=== PATIENT | female | born 1990 | race Two or more races ===

== ENCOUNTER → 2019-06-16 | Outpatient (CLI) | payer OTHER | END | disposition home or self-care (01) | LOC: LAB SHORT 14:19 → LAB UCHC 14:19 | DX: B00.1 Herpesviral vesicular dermatitis (principal) | CPT/HCPCS: 87529 ==

== ENCOUNTER → 2019-12-11 | Outpatient (CLI) | payer OTHER ==
[2019-12-14 01:04] LABS: CHLAMYDIA TRACHOMATIS, NAA Negative (Negative); NEISSERIA GONORRHOEAE, NAA Negative (Negative)
== END ==
LOC: LAB SHORT 15:49 → LAB 15:49
PROVIDERS: Registered Nurse Community Health
DX: Z34.91 Encounter for supervision of normal pregnancy, unspecified, first trimester (principal)
CPT/HCPCS: 87491; 87591

== ENCOUNTER → 2020-04-06 | Outpatient (CLI) | payer OTHER ==
[~2020-04-06] MED LIST: PRENATAL TABLE1 EAC2 PO
[2020-04-06 15:53] LABS: Hematocrit 35.5 % (33.0-51.0); Hemoglobin 11.9 g/dL (11.5-16.0)
== END ==
LOC: LAB 15:02 → LAB SHORT 15:02
PROVIDERS: Registered Nurse Community Health
DX: Z34.91 Encounter for supervision of normal pregnancy, unspecified, first trimester (principal)
CPT/HCPCS: 82950; 85014; 85018

== ENCOUNTER 2020-06-29 09:39 | Inpatient (IN) | payer OTHER ==
[~2020-06-29] VITALS: Ht 167.6 cm; Wt 83.6 kg
[2020-06-29] MEDS ORDERED: PRENATAL TABLE1 EAC2 PO (10:34)
[2020-06-29 12:01] LABS: Influenza A, PCR NEGATIVE (NEGATIVE); Influenza B, PCR NEGATIVE (NEGATIVE); Resp Syncytial Virus, PCR NEGATIVE (NEGATIVE); SARS-Cov-2 (COVID-19) PCR, MMC NEGATIVE (NEGATIVE)
--- NOTE | 2020-06-29 12:59 | NUR ---
PT DOES NOT WANT IV PLACED. ARLET VALADEZ, AWARE AND RESPECTING PATIENT'S WISHES. PLAN TO HAVE IM PITOCIN, IM METHERGINE, AND CYTOTEC IN ROOM AT DELIVERY.
[2020-06-30 05:38] LABS: BASOPHILS ABSOLUTE AUTO 0.04 K/mm3 (0.00-0.23); BASOPHILS PERCENT AUTO 0 % (0-2); EOSINOPHILS ABSOLUTE AUTO 0.01 K/mm3 (0.00-0.68); EOSINOPHILS PERCENT AUTO 0 % (0-6); Hematocrit 35.7 % (33.0-51.0); Hemoglobin 12.5 g/dL (11.5-16.0); IMMATURE GRAN ABSOLUTE AUTO 0.12 K/mm3 (0.00-0.10); IMMATURE GRAN PERCENT AUTO 1 % (0-1); LYMPHOCYTES ABSOLUTE AUTO 2.95 K/mm3 (0.84-5.20); LYMPHOCYTES PERCENT AUTO 16 % (21-46); MONOCYTES ABSOLUTE AUTO 1.22 K/mm3 (0.16-1.47); MONOCYTES PERCENT AUTO 7 % (4-13); Mean Corpuscular HGB 31.5 pg (26.0-34.0); Mean Corpuscular Volume 90 fL (80-100); Mean Platelet Volume 11.8 fL (9.1-12.4); NEUTROPHILS ABSOLUTE AUTO 14.49 K/mm3 (1.96-9.15); NEUTROPHILS PERCENT AUTO 77 % (41-73); Platelet Count 212 K/mm3 (150-400); RDW Coefficient Variation 13.2 % (11.7-14.2); RDW Standard Deviation 42.8 fL (35.1-46.3); Red Blood Cell Count 3.97 M/mm3 (3.80-5.20); White Blood Cell Count 18.83 K/mm3 (4.00-11.30)
--- NOTE | 2020-06-30 10:48 | NUR ---
RN/LC ROUNDED TO HELP W/ (BRF). PT STATES BRF HAS BEEN GOING WELL. INSTRUCT/REVIEWED GUIDE TO BOOKLET, CORRECT POSITIONING, LATCHING, NIPPLE SHAPE AFTER FEEDS, AND FREQUENCY OF FEEDINGS. PT VERBALIZED UNDERSTANDING, DENIES QUESTIONS OR CONCERNS. FURTHER LC OFFERED.
--- NOTE | 2020-06-30 19:18 | NUR ---
DISCHARGE INSTRUCTIONS, WRITTEN AND VERBAL, GIVEN TO PT AND . ANSWERED ALL QUESTIONS AND CONCERNS. FOLLOW UP APPOINTMENT SCHEDULED. PT DENIED NEEDING ANY PRESCRIPTIONS. ALL PERSONAL BELONGINGS RETURNED. PT IS DISCHARGED HOME, DRIVEN BY .
== END 2020-06-30 19:19 | disposition home or self-care (01) | DRG 807 ==
LOC: OBS 09:39 → BC 09:43 → OBS 10:19 → BC 10:20
PROVIDERS: ADMIT Registered Nurse Community Health
PROC: 10E0XZZ Delivery of Products of Conception, External Approach (ICD-10-PCS; principal; 2020-06-29)
PROC: 0HQ9XZZ Repair Perineum Skin, External Approach (ICD-10-PCS; 2020-06-29)
DX: O70.0 First degree perineal laceration during delivery (principal); Z37.0 Single live birth; Z3A.40 40 weeks gestation of pregnancy; Z20.822 Contact with and (suspected) exposure to COVID-19
CPT/HCPCS: 0241U; 36415; 85025; A9270; J2590

== ENCOUNTER → 2020-12-21 | Outpatient (CLI) | payer OTHER ==
[2020-12-24 10:11] LABS: HPV 16 Negative (Negative); HPV 18 Negative (Negative); HPV OTHER HR TYPES Negative (Negative)
== END ==
LOC: LAB SHORT 14:30 → LAB 14:30
PROVIDERS: Student in an Organized Health Care Education/Training Program
DX: Z01.419 Encounter for gynecological examination (general) (routine) without abnormal findings (principal)
CPT/HCPCS: 87624; G0123

== ENCOUNTER → 2022-04-28 | Outpatient (CLI) | payer OTHER | END | disposition home or self-care (01) | LOC: LAB SHORT 13:03 | DX: N81.4 Uterovaginal prolapse, unspecified (principal) | CPT/HCPCS: 87086 ==

== ENCOUNTER → 2023-07-06 | Outpatient (CLI) | payer BC, OTHER ==
[2023-07-12 22:11] LABS: HPV HIGH RISK BY TMA Not Detected; HPV SOURCE Cervical
== END ==
LOC: LAB SHORT 11:53 → LAB 11:53
PROVIDERS: Family Medicine
DX: Z12.4 Encounter for screening for malignant neoplasm of cervix (principal)
CPT/HCPCS: 87624; G0123

== ENCOUNTER → 2024-06-23 | Outpatient (CLI) | payer BC, OTHER | END | disposition home or self-care (01) | LOC: LAB 12:00 → LAB SHORT 12:00 | DX: Z34.83 Encounter for supervision of other normal pregnancy, third trimester (principal); Z3A.36 36 weeks gestation of pregnancy | CPT/HCPCS: 87081; 87147 ==

== ENCOUNTER 2024-07-14 14:15 | Inpatient (IN) | payer BC, OTHER ==
[2024-07-14] VITALS (11 sets, daily range): BP systolic 121–141; BP diastolic 58–88
[2024-07-14] MEDS ORDERED: OXYTOCIN/RINGER'S LACTATE 500 ML IV PRN (14:50)
[2024-07-14] MEDS ORDERED: Tranexamic Acid 100 ML IV SCH (14:50)
[2024-07-14] MEDS ORDERED: Calcium Carbonate 500 MG Tab Chew PO SCH (14:50)
[2024-07-14] MEDS ORDERED: Lactated Ringer's 1,000 ML IV PRN (14:50)
[2024-07-14] MEDS ORDERED: Misoprostol 200 MCG Tab BC PRN (14:50)
[2024-07-14] MEDS ORDERED: Ondansetron HCl 2 MG / ML 2ML Vial IV PRN (14:50)
[2024-07-14] MEDS ORDERED: Methylergonovine Maleate 0.2MG / ML 1ML Amp IM PRN ×2 (14:50→16:20)
[2024-07-14] MEDS ORDERED: Carboprost Tromethamine 250 MCG/ML 1ML Amp IM PRN ×2 (14:50→16:25)
[2024-07-14] MEDS ORDERED: Misoprostol 200 MCG Tab PR PRN (14:50)
[2024-07-14] MEDS ORDERED: Acetaminophen 500 MG Tab PO PRN (14:50)
[2024-07-14] MEDS ORDERED: Oxytocin 10 Unit / ML Vial IM PRN (14:50)
[2024-07-14 15:20] LABS: BASOPHILS ABSOLUTE AUTO 0.04 K/mm3 (0.00-0.23); BASOPHILS PERCENT AUTO 0 % (0-2); EOSINOPHILS ABSOLUTE AUTO 0.03 K/mm3 (0.00-0.68); EOSINOPHILS PERCENT AUTO 0 % (0-6); Hematocrit 41.9 % (33.0-51.0); Hemoglobin 14.9 g/dL (11.5-16.0); IMMATURE GRAN PERCENT AUTO 1 % (0-1); LYMPHOCYTES ABSOLUTE AUTO 2.64 K/mm3 (0.84-5.20); LYMPHOCYTES PERCENT AUTO 20 % (21-46); MONOCYTES ABSOLUTE AUTO 0.75 K/mm3 (0.16-1.47); MONOCYTES PERCENT AUTO 6 % (4-13); Mean Corpuscular HGB 30.9 pg (26.0-34.0); Mean Corpuscular HGB Conc 35.6 g/dL (31.5-36.5); Mean Corpuscular Volume 87 fL (80-100); Mean Platelet Volume 11.9 fL (9.1-12.4); NEUTROPHILS ABSOLUTE AUTO 9.59 K/mm3 (1.96-9.15); NEUTROPHILS PERCENT AUTO 73 % (41-73); Platelet Count 231 K/mm3 (150-400); RDW Coefficient Variation 14.2 % (11.7-14.2); RDW Standard Deviation 44.5 fL (35.1-46.3); Red Blood Cell Count 4.82 M/mm3 (3.80-5.20); White Blood Cell Count 13.15 K/mm3 (4.00-11.30)
[2024-07-14] MEDS ORDERED: Ampicillin Sod 2,000 MG in NS 100 ML IV ONE (15:45)
[2024-07-14] MEDS ORDERED: Lactated Ringer's 1,000 ML IV SCH (16:20)
[2024-07-14] MEDS ORDERED: Docusate Sodium 100 MG Cap PO PRN (16:20)
[2024-07-14] MEDS ORDERED: Witch Hazel/Glycerin PADS TOP PRN (16:20)
[2024-07-14] MEDS ORDERED: Misoprostol 100 MCG Tab PO PRN (16:20)
[2024-07-14] MEDS ORDERED: OxyCODONE 5 mg/Acetamin 325 mg TABLET PO PRN (16:25)
[2024-07-14] MEDS ORDERED: Benzocaine Topical Anesthetic Spray 60GM TOP PRN (16:25)
[2024-07-14] MEDS ORDERED: Lanolin Cream TOP PRN (16:25)
[2024-07-14] MEDS ORDERED: Acetaminophen 325 MG TABLET PO PRN (16:25)
[2024-07-14] MEDS ORDERED: Oxytocin 10 Unit / ML Vial IM ONE (16:25)
[2024-07-15 00:03] VITALS: BP 158/77
[2024-07-15 00:04] VITALS: BP 148/81
[2024-07-15 04:37] VITALS: BP 132/80
--- NOTE | 2024-07-15 05:03 | NUR ---
FOCUS: STATUS RN IN ROOM FOR PATIENT ROUNDS. VSS PER HEAD BELLHOP CAPTAIN. PT REPORTS HAS IMPROVED OVERNIGHT AND NB LESS FUSSY AT THE BREAST. PT AMB AND VOIDING WELL. DECLINES PRN ANALGESICS AT THIS TIME. NO FURTHER CONCERNS
[2024-07-15 07:46] VITALS: BP 129/78
[2024-07-15] MEDS ORDERED: Ibuprofen 400 MG Tab PO PRN (08:00)
[2024-07-15] MEDS ORDERED: Prenatal Vit/FE Fumarate/FA 1 Tab PO SCH (09:00)
[2024-07-15 11:46] VITALS: BP 132/77
[2024-07-15 18:15] VITALS: BP 131/74
== END 2024-07-15 19:30 | disposition home or self-care (01) | DRG 807 ==
LOC: OBS 14:15 → BC 14:15 → OBS 14:42 → BC 14:42
PROVIDERS: ADMIT Advanced Practice Midwife
PROC: 10E0XZZ Delivery of Products of Conception, External Approach (ICD-10-PCS; principal; 2024-07-14)
DX: O99.824 Streptococcus B carrier state complicating childbirth (principal); Z37.0 Single live birth; Z3A.39 39 weeks gestation of pregnancy; O69.81X0 Labor and delivery complicated by cord around neck, without compression, not applicable or unspecified
CPT/HCPCS: 36415; 59025; 85025; 86850; 86900; 86901; 99214; A9270